=== PATIENT | male | born 1985 | race Caucasian/White ===

== ENCOUNTER 2025-08-02 09:12 | Outpatient (REF) | payer OTHER, SELFPAY ==
[2025-08-02 14:53] LABS: MANUAL DIFF FLAG NO
[2025-08-02 14:58] LABS: Hematocrit 46.4 % (42.0-52.0); Hemoglobin 15.1 g/dl (14.0-18.0); Imm Gran Abs Auto 0.02 X10*3/uL (0.00-0.03); Imm Gran Pct Auto 0.3 % (0.0-0.4); Lymphocytes Absolute Auto 2.5 X10*3/uL (1.2-4.9); Mean Corpuscular HGB Conc 32.5 g/dl (31.0-36.0); Mean Corpuscular Hemoglobin 27.9 pg (27.0-33.0); Mean Corpuscular Volume 85.8 fL (80.0-98.0); NRBC Abs Auto 0.000 X10*3/uL (0.0-0.012); NRBC Pct Auto 0.0 /100WBC (0.0-0.2); Platelet Count 298 X10*3/uL (160-400); Red Blood Count 5.41 X10*6/uL (4.60-5.80); White Blood Count 6.5 X10*3/uL (4.8-10.8)
[2025-08-02 15:15] LABS: Appearance Urine Clear; Glucose Urine UA Negative (Negative); PH 6.0 (5.0-9.0); Specific Gravity - Urine 1.020 (1.005-1.025); UMIC TRIGGER UACC YES
[2025-08-02 15:21] LABS: Alanine Aminotransferase 37 U/L (0-40); Albumin Level 4.7 g/dL (3.5-5.0); Alkaline Phosphatase 79 U/L (39-117); Anion Gap 12 (12-20); Aspartate Amino Transferase 27 U/L (5-37); Blood Urea Nitrogen 16 mg/dL (9-16); Calcium 9.7 mg/dL (8.4-10.2); Carbon Dioxide 27 mmol/L (22-29); Chloride 106 mmol/L (96-108); Cholesterol 233 mg/dL (<200); Estimated Glomerular Filt Rate > 60; HDL Cholesterol 55 mg/dL (>40); Potassium 4.6 mmol/L (3.3-5.1); Sodium 140 mmol/L (135-145); Total Protein 7.8 g/dL (6.5-8.0); Triglycerides 90 mg/dL (<150)
[2025-08-02 16:17] LABS: Microalbum/Creatinine Ratio Ur 4.4 ug/mg cr (<30)
== END 2025-08-02 09:13 | disposition home or self-care (01) ==
LOC: HO.WFDLDS 09:12
PROVIDERS: PCP Family Medicine; Visit Provider Family Medicine
DX: Z00.00 Encounter for general adult medical examination without abnormal findings (principal); I10 Essential (primary) hypertension; H92.02 Otalgia, left ear; K64.9 Unspecified hemorrhoids; Z87.442 Personal history of urinary calculi; Z83.719 Family history of colon polyps, unspecified
CPT/HCPCS: 36415; 80053; 80061; 81001; 82043; 82570; 84443; 85025; 96127; 99202

== ENCOUNTER 2025-08-02 09:12 | Outpatient (AMB) | payer OTHER, SELFPAY ==
--- OUTSIDE RECORDS SUMMARY | 2025-08-02 09:48 | XMS_ITS | Clinical Summary ---
Author Organization 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 Name Role Phone Yeison Dobbins DO Primary Care Provider + Allergies No known active allergies Surgical History Surgery Date Site/Laterality Comments OTHER SURGICAL HISTORY PROCEDURE: DENIES PREVIOUS SURGERY Medical History Medical History Date Comments Microscopic hematuria 11/24/2013 DX:Microsc opic hematuria; COMMENT: Referred to urology 06/08/2017 Family History Medical History Relation Name Comments Hypertension Father Diabetes Mother HTN Relation Name Status Comments Brother Alive Father Alive Mother Alive Sister 1 Alive Sister 2 Alive Sister 3 Alive Social History Tobacco Use Types Packs/Day Years Used Date Smoking Tobacco: Never Smokeless Tobacco: Never Alcohol Use Standard Drinks/Week Comments Yes 0 (1 standard drink = 0.6 oz pur e alcohol) Sex and Gender Information Value Date Recorded Sex Assigned at Not on file Legal Sex Male 1:25 AM EST Gender Identity Not on file Sexual Orientation Not on file Last Filed Vital Signs Vital Sign Reading Time Taken Comments Blood Pressure 143/80 11/15/2024 12:52 PM EDT Pulse 98 11/15/2024 12:52 PM EDT Temperature 37.1 C (98.8 F) 11/15/2024 12:52 PM EDT Respiratory Rate 18 11/15/2024 12:52 PM EDT Oxygen Saturation 96% 11/15/2024 12:52 PM EDT Inhaled Oxygen Concentration - - Weight 109 kg (240 lb) 11/15/2024 12:52 PM EDT Height 175.3 cm (5' 9 ) 11/15/2024 12:52 PM EDT Body Mass Index 35.44 11/15/2024 12:52 PM EDT Plan of Treatment Health Maintenance Due Date Last Done Comments Hepatitis B Vaccines (1 of 3 - 19+ 3-dose series) 2005 HPV Vaccines (1 - 3-dose SCD M series) 2013 DTaP,Tdap,and Td Vaccines (2 - Td or Tdap) 09/06/2021 09/06/2011 Cholesterol Screening (Lipid Panel) 07/14/2022 HIV Screening 07/14/2022 Hepatitis C Screening 07/14/2022 Social Influencers of Health Screening 07/14/2022 Depression Screening 08/11/2024 COVID-19 Vaccine (1 - 2024-2 6 season) 2025 Influenza Vaccine (#1) 2025 RSV Immunization Adult Patie nts (1 - 1-dose 75+ series) 2061 HIB Vaccines Aged Out No longer eligi ble based on patient's age to complete this topic Hepatitis A Vaccines Aged Out No long er eligible based on patient's age to complete this topic IPV Vaccines Aged Out No longer eligi ble based on patient's age to complete this topic MMR Vaccines Aged Out No longer eligi ble based on patient's age to complete this topic Meningococcal ACWY Vaccine Aged Out N o longer eligible based on patient's age to complete this topic Meningococcal B Vaccine Aged Out No l onger eligible based on patient's age to complete this topic Pneumococcal Vaccine: Pediat rics (0 to 5 Years) and At-Risk Patients (6 to 49 Years) Aged Out No longer eligi ble based on patient's age to complete this topic RSV Immunization Patients Un guzman 20 months Aged Out No longer eligible b ased on patient's age to complete this topic Varicella Vaccines Aged Out No longer eligible based on patient's age to complete this topic Insurance [employer] Care Teams Microfilm Mounter Relationship Specialty Start Date End Date Yeison Dobbins DO [facility] [address] [place] [address] PCP - General Internal Medicine 02/19/21
--- NOTE | 2025-08-02 09:50 | MHC.PC.OV ---
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 ?? Prior PCP:? Joanne garcia [place] Last office visit/CPE:? 10 yrs ago Acute issue(s):? Hemorrhoids x 7 mos ago. Using OTC creams & Suppositories. L ear feels blocked and has tinnitus ?? PMHx:? kidney stone - saw urologist. Hemorrhoids, SurgHx:? None FHx:? Mom: DM, Heart dz, HTN, Kidney dz, Colon Polyps. Dad: HTN, BPH, Colon Polyps. SocHx:? Nonsmoker. EtOH 2-3 on weeked days. No Drugs PFSH Family History (Updated 08/02/25 @ 09:58 by Jeannette Griffin CMA) Father Hypertension Mother Hypertension Diabetes Social History (Updated 08/02/25 @ 09:54 by Jeannette Griffin CMA) Housing: House Alcohol intake: current Patient Tobacco Use Status: Never used Tobacco e-Cigarette/Vaping Use: Never Used Second Hand Smoke Exposure: No Use of substances other than those prescribed or required for medical reasons: No service: No Current occupational status: employed Current occupation: [employer] Current occupational exposures/hazards: No Cognitive needs: No Hearing needs: No Vision needs: No Questionnaire PHQ-9 Over the last 2 weeks, how often have you been bothered by any of the following problems? 1. Little interest or pleasure in doing things: not at all 2. Feeling down, depressed, or hopeless: not at all 3. Trouble falling or staying asleep, or sleeping too much: not at all 4. Feeling tired or having little energy: not at all 5. Poor appetite or overeating: several days 6. Feeling bad about yourself - or that you are a failure or have let yourself or your family down: not at all 7. Trouble concentrating on things, such as reading the newspaper or watching television: not at all 8. Moving or speaking so slowly that other people could have noticed. Or the opposite - being so fidgety or restless that you have been moving around a lot more than usual: not at all 9. Thoughts that you would be better off or of hurting yourself in some way: not at all Total score: 1 Depression Screening Interpretation: Negative Depression Screening Done: Yes 01530 - PHQ-9 Billing: Yes Source: Developed by Drs. Yeison Gregorio, Smiley Swartz, Toan Galan and colleagues, with an educational abida from [employer]. Thrive Questionnaire Date Thrive assessed: 08/02/25 I am a: Patient What is your living situation today?: I have a steady place to live Within the past 12 months, did the food you bought not last and you didn't have the money to get more?: Never true Within the past 12 months, did you worry whether your food would run out before you got money to buy more?: Never true Do you have trouble paying for medicines?: No Do you have trouble getting transportation to medical appointments?: No Do you have trouble paying your heating and electricity bill?: No Do you have trouble taking care of your child, family member or friend?: No Do you have trouble with day-to-day activities such as bathing, preparing meals, shopping, managing finances, etc.?: No Are you currently unemployed and looking for a job?: No Are you interested in more education?: No Please select the resources that you would like help with: None Currently or been in a relationship where the following occur: No concerns reported THRIVE Score: 0 AUDIT C Alcohol Use Questionnaire (AUDIT-C) 1. How often do you have a drink containing alcohol?: Monthly or less 2. How many drinks containing alcohol do you have on a typical day when you are drinking?: 3 or 4 3. How often do you have six or more drinks on one occasion?: Less than monthly Total Score: 3 YU-7 AMB Questionnaire YU-7 Date YU - 7 assessed: 08/02/25 Feeling nervous, anxious, or on edge: 0 = Not at all Not being able to stop or control worryin = Not at all Worrying too much about different things: 0 = Not at all Trouble relaxin = Not at all Being so restless that it is hard to sit still: 0 = Not at all Becoming easily annoyed or irritable: 0 = Not at all Feeling afraid as if something awful might happen: 0 = Not at all Total YU-7 score (0-4 normal; 5-9 mild; 10-14 moderate; 15-21 severe): 0 Source: Developed by Drs. Yeison Gregorio, Smiley Swartz, Toan Galan and colleagues, with an educational abida from [employer]. YU-7 Assessment Billing YU-7 Assessment Tool: YU-7 Assessment 27462 Review of Systems Const Denies chills, Denies fatigue, Denies fever(s), Denies headache(s) and Denies weakness ENT Denies dizziness and Denies headache(s) Card Denies chest pain, Denies lightheadedness, Denies dyspnea and Denies other (Palpitations) Resp Denies cough, Denies dyspnea, Denies wheezing and Denies other ( shortness of breath) Musc Denies numbness and Denies tingling Neuro Denies dizziness, Denies headache(s), Denies numbness, Denies tingling, Denies paresthesias and Denies weakness Psych Denies anxiety and Denies depression Endo Denies fatigue Aller/Immun Denies wheezing Physical exam (Primary Care) Vital Signs: Last Vital Signs Temp 97.4 F 08/02/25 09:55 Pulse 74 08/02/25 09:55 Resp 14 08/02/25 09:55 BP 110/80 08/02/25 09:55 Pulse Ox 98 08/02/25 09:55 Oxygen Delivery Method Room Air 08/02/25 09:55 BMI result Body Mass Index 35.5 Tobacco/Smoking Status: Tobacco use Status Tobacco use date assessed 08/02/25 08/02/25 09:57 Patient Tobacco Use Status Never used Tobacco 08/02/25 09:57 e-Cigarette/Vaping Use Never Used 08/02/25 09:57 PHQ-9: PHQ-9 Score PHQ-9: Total score 1 08/02/25 10:32 Depression Screening Interpretation: Negative Thrive Assessment: Date of Thrive Assessment Date Thrive assessed 08/02/25 08/02/25 09:52 Currently or been in a relationship where the following occur: No concerns reported Const General: no acute distress and well developed Nutritional Appearance: well nourished Orientation/consciousness: patient oriented x3 HENMT Head: Yes normocephalic and Yes atraumatic Eyes General: appearance normal, both eyes and all related structures Pupils: Equal, round and reactive pupils present EOM: EOMs intact bilaterally Resp Effort & Inspection: normal respiratory effort Auscultation: clear to auscultation bilaterally Cardio Rate: regular rate Rhythm: regular rhythm Heart sounds: S1 normal heart sound present, S2 normal heart sound present, no gallops, no murmurs and no rubs Neuro General: patient oriented x3 and gait normal Cranial nerves: Yes Equal, round and reactive pupils present Psych Affect: normal affect Coding Level of Care Code New Pt Level 3 (13927) Diagnoses Discomfort of left ear H92.02 Hemorrhoids K64.9 History of kidney stones Z87.442 Family history of colonic polyps Z83.719 Laboratory exam ordered as part of routine general medical examination Z00.00 Additional Codes YU-7 Assessment Billing - YU-7 Assessment Tool: YU-7 Assessment 98818 ([id number]) PHQ-9 - 12167 - PHQ-9 Billing: Yes ([id number]) Assessment & Plan Assessment & Plan (1) Discomfort of left ear: Code(s): H92.02 - Otalgia, left ear Category: Medical Plan: Left ear pressure and tinnitus that started today. Mildly decreased light reflex No fluid pus or erythema Trial nasal steroid If not improving will get audiology testing or refer to ENT (2) Hemorrhoids: Code(s): K64.9 - Unspecified hemorrhoids Category: Medical Plan: Keep stools soft Hydrate well Can use some MiraLax if stools are not soft Avoid straining Can use Proctosol topically Referred to Gastroenterology (3) History of kidney stones: Code(s): Z87.442 - Personal history of urinary calculi Category: Medical Plan: Hydrate well Checking urinalysis (4) Family history of colonic polyps: Code(s): Z83.719 - Family history of colon polyps, unspecified Category: Medical Plan: Strong family history of colon polyps, mom and dad Referred to Gastroenterology (5) Laboratory exam ordered as part of routine general medical examination: Code(s): Z00.00 - Encounter for general adult medical examination without abnormal findings Category: Medical Plan: Check labs Orders: Orders Lipid Panel Today Z00.00 - Encounter for general adult medical examination without abnormal findings Microalbumin, Random (w Creat) Today I10 - Essential (primary) hypertension TSH reflex Free T4 Today Z00.00 - Encounter for general adult medical examination without abnormal findings UA CC w/rflx Micro + Cult Today Z00.00 - Encounter for general adult medical examination without abnormal findings Complete Blood Count Auto Diff Today Z00.00 - Encounter for general adult medical examination without abnormal findings Comprehensive [place]. Panel Fast Today Z00.00 - Encounter for general adult medical examination without abnormal findings Referrals Gastroenterology Referral K64.9 - Unspecified hemorrhoids, Z83.719 - Family history of colon polyps, unspecified Medications: New hydrocortisone 2.5% (Proctosol HC) 1 appl MI BID-QID PRN 30 grams 0RF hemorrhoids 7 days polyethylene glycol 3350 (Miralax) 17 grams PO DAILY 14 ea 0RF 14 days fluticasone propionate 50 mcg/actuation (Flonase Allergy Relief) administer into each nostril 1 spray intranasal Q12H 16 grams 2RF 30 days
[2025-08-02 09:55] VITALS: BP 110/80; PULSE 74; RESP 14; TEMP 36.3; O2SAT 98; BMI 35.5
== END 2025-08-02 11:08 | disposition home or self-care (01) ==
LOC: HO.HMCFM 09:12
PROVIDERS: PCP Family Medicine; Visit Provider Family Medicine
DX: H92.02 Otalgia, left ear (principal); K64.9 Unspecified hemorrhoids; Z87.442 Personal history of urinary calculi; Z83.719 Family history of colon polyps, unspecified; Z00.00 Encounter for general adult medical examination without abnormal findings